=== PATIENT | female | born 1950 | race Caucasian/White ===

== ENCOUNTER 2018-10-29 11:22 | Inpatient (IN) | payer MEDICARE, OTHER ==
[2018-10-29] MEDS ORDERED: HYDROCODONE/APAP (5/325) TAB PO (12:00)
[2018-10-29] MEDS ORDERED: ONDANSETRON 4 MG INJ IV (12:00)
[2018-10-29] MEDS ORDERED: MAGNESIUM HYDROXIDE 30ML CUP PO (12:00)
[2018-10-29] MEDS ORDERED: NACL 0.9% 3 ML SYG IV (12:00)
[2018-10-29] MEDS ORDERED: DOCUSATE SODIUM 100 MG CAP PO (12:00)
[2018-10-29] MEDS: HYDROCODONE/APAP (5/325) TAB PO ×2 (12:06→21:19)
[2018-10-29] MEDS: HYDROmorphONE 0.5 MG/0.5 ML SYG IV (14:43)
[2018-10-29] MEDS: GABAPENTIN 400 MG CAP PO (21:13)
[2018-10-29] MEDS: ATORVASTATIN 20 MG TAB PO (21:14)
[2018-10-29] MEDS: PHENYTOIN 100 MG CAP PO (21:14)
[2018-10-29] MEDS: CALCIUM/VITAMIN D (500/200) TAB PO (22:09)
[2018-10-29] MEDS: ACETAMINOPHEN 325 MG TAB PO (22:29)
[2018-10-30] MEDS: HYDROCODONE/APAP (5/325) TAB PO (00:57)
[2018-10-30] MEDS: TIZANIDINE 4 MG TAB PO ×2 (01:18→21:06)
[2018-10-30] MEDS: HYDROmorphONE 0.5 MG/0.5 ML SYG IV ×3 (05:54→20:08)
[2018-10-30] MEDS ORDERED: PHENYTOIN 100 MG CAP PO (07:20)
[2018-10-30] MEDS: POTASSIUM CHLORIDE (SR) 20 MEQ TAB PO (09:00)
[2018-10-30] MEDS: GABAPENTIN 400 MG CAP PO ×3 (09:00→20:09)
[2018-10-30] MEDS: LISINOPRIL 10 MG TAB PO (09:00)
[2018-10-30] MEDS: MULTIVITAMINS THERAPEUTIC TAB PO (09:00)
[2018-10-30] MEDS: TIOTROPIUM 18 MCG CAPSULE INHA DEV INH (09:00)
[2018-10-30] MEDS: NICOTINE (21 MG/24 HR) PATCH TRANSDERM (09:00)
[2018-10-30] MEDS: CALCIUM/VITAMIN D (500/200) TAB PO ×2 (09:00→20:06)
[2018-10-30] MEDS: PHENYTOIN 100 MG CAP PO ×2 (09:00→20:07)
[2018-10-30] MEDS ORDERED: LIDOCAINE 1% (MDV) 20 ML INJ (12:30)
[2018-10-30] MEDS ORDERED: MIDAZOLAM 1 MG/ML 2 ML INJ (12:30)
[2018-10-30] MEDS ORDERED: FENTAnyl 50 MCG/ML VIAL (12:30)
[2018-10-30] MEDS ORDERED: HEPARIN 1000 UNITS/NS (A-LINE) 1,000 ML (12:30)
[2018-10-30] MEDS ORDERED: IOHEXOL 350MG/ML 50 ML BTL ×2 (13:10→13:33)
[2018-10-30] MEDS ORDERED: IODIXANOL LOCM 100 ML BTL (13:10)
[2018-10-30] MEDS ORDERED: IODIXANOL LOCM 50 ML BTL (13:16)
[2018-10-30] MEDS: ATORVASTATIN 20 MG TAB PO (20:05)
[2018-10-31] MEDS: HYDROmorphONE 0.5 MG/0.5 ML SYG IV ×3 (02:04→13:32)
[2018-10-31] MEDS: HYDROCODONE/APAP (10/325) TAB PO ×4 (05:07→22:42)
[2018-10-31] MEDS: TIOTROPIUM 18 MCG CAPSULE INHA DEV INH (09:00)
[2018-10-31] MEDS: GABAPENTIN 400 MG CAP PO ×3 (09:00→20:39)
[2018-10-31] MEDS: FENTAnyl 50 MCG/ML VIAL (10:21)
[2018-10-31] MEDS: MIDAZOLAM 1 MG/ML 2 ML INJ (10:22)
[2018-10-31] MEDS: LIDOCAINE 1% (MDV) 20 ML INJ (10:40)
[2018-10-31] MEDS: POTASSIUM CHLORIDE (SR) 20 MEQ TAB PO (13:33)
[2018-10-31] MEDS: LISINOPRIL 10 MG TAB PO (13:33)
[2018-10-31] MEDS: CALCIUM/VITAMIN D (500/200) TAB PO ×2 (13:35→20:40)
[2018-10-31] MEDS: MULTIVITAMINS THERAPEUTIC TAB PO (13:35)
[2018-10-31] MEDS: PHENYTOIN 100 MG CAP PO ×2 (13:38→20:39)
[2018-10-31] MEDS: NICOTINE (21 MG/24 HR) PATCH TRANSDERM (14:43)
[2018-10-31] MEDS: HYDROmorphONE 1 MG/ML SYG IV ×2 (16:51→20:51)
[2018-10-31] MEDS: ATORVASTATIN 20 MG TAB PO (20:40)
[2018-11-01] MEDS: HYDROmorphONE 1 MG/ML SYG IV ×6 (03:22→23:55)
[2018-11-01] MEDS: HYDROCODONE/APAP (10/325) TAB PO ×5 (04:31→21:39)
[2018-11-01] MEDS: GABAPENTIN 400 MG CAP PO ×3 (08:59→20:36)
[2018-11-01] MEDS: TIOTROPIUM 18 MCG CAPSULE INHA DEV INH (08:59)
[2018-11-01] MEDS: PHENYTOIN 100 MG CAP PO ×2 (08:59→20:36)
[2018-11-01] MEDS: POTASSIUM CHLORIDE (SR) 20 MEQ TAB PO (09:00)
[2018-11-01] MEDS: LISINOPRIL 10 MG TAB PO (09:00)
[2018-11-01] MEDS: CALCIUM/VITAMIN D (500/200) TAB PO ×2 (09:00→20:36)
[2018-11-01] MEDS: MULTIVITAMINS THERAPEUTIC TAB PO (09:00)
[2018-11-01] MEDS: ATORVASTATIN 20 MG TAB PO (20:36)
[2018-11-02] MEDS: HYDROmorphONE 1 MG/ML SYG IV ×5 (04:47→22:16)
[2018-11-02] MEDS: MULTIVITAMINS THERAPEUTIC TAB PO (09:21)
[2018-11-02] MEDS: GABAPENTIN 400 MG CAP PO ×3 (09:21→20:44)
[2018-11-02] MEDS: POTASSIUM CHLORIDE (SR) 20 MEQ TAB PO (09:22)
[2018-11-02] MEDS: LISINOPRIL 10 MG TAB PO (09:22)
[2018-11-02] MEDS: PHENYTOIN 100 MG CAP PO ×2 (09:23→20:43)
[2018-11-02] MEDS: TIOTROPIUM 18 MCG CAPSULE INHA DEV INH (09:23)
[2018-11-02] MEDS: CALCIUM/VITAMIN D (500/200) TAB PO ×2 (09:23→20:44)
[2018-11-02] MEDS: NICOTINE (21 MG/24 HR) PATCH TRANSDERM (09:30)
[2018-11-02] MEDS: HYDROCODONE/APAP (10/325) TAB PO ×2 (14:35→19:15)
[2018-11-02] MEDS: ATORVASTATIN 20 MG TAB PO (20:43)
[2018-11-03] MEDS: DEXTROSE 5%-0.45% NACL 1,000 ML IV ×2 (00:03→16:40)
[2018-11-03] MEDS: HYDROmorphONE 1 MG/ML SYG IV ×7 (02:18→22:18)
[2018-11-03] MEDS: HYDROCODONE/APAP (10/325) TAB PO ×2 (04:52→16:02)
[2018-11-03] MEDS: NICOTINE (21 MG/24 HR) PATCH TRANSDERM (08:31)
[2018-11-03] MEDS: TIOTROPIUM 18 MCG CAPSULE INHA DEV INH (08:31)
[2018-11-03] MEDS: PHENYTOIN 100 MG CAP PO ×2 (08:32→20:37)
[2018-11-03] MEDS: LISINOPRIL 10 MG TAB PO (08:32)
[2018-11-03] MEDS: CALCIUM/VITAMIN D (500/200) TAB PO ×2 (08:34→20:36)
[2018-11-03] MEDS: MULTIVITAMINS THERAPEUTIC TAB PO (08:34)
[2018-11-03] MEDS: POTASSIUM CHLORIDE (SR) 20 MEQ TAB PO (08:34)
[2018-11-03] MEDS: GABAPENTIN 400 MG CAP PO ×3 (08:34→20:36)
[2018-11-03] MEDS ORDERED: EPHEDrine 25 MG/5 ML SYG (13:00)
[2018-11-03] MEDS ORDERED: LIDOCAINE 2% (SDV) 5 ML INJ (13:00)
[2018-11-03] MEDS ORDERED: PHENYLephrine (100 MCG/ML) 10ML SYG (13:00)
[2018-11-03] MEDS: PROPOFOL 40 ML (13:02)
[2018-11-03] MEDS: MIDAZOLAM 1 MG/ML 2 ML INJ (13:02)
[2018-11-03] MEDS: FENTAnyl 50 MCG/ML VIAL (13:03)
[2018-11-03] MEDS: LIDOCAINE 1% (MPF) 5 ML VIAL (13:45)
[2018-11-03] MEDS ORDERED: FENTAnyl 50 MCG/ML VIAL IV ×2 (15:00)
[2018-11-03] MEDS ORDERED: LEVALBUTEROL (NEB) 0.63 MG/3 ML AMP HHN (15:00)
[2018-11-03] MEDS ORDERED: KETOROLAC 15 MG INJ IV (15:00)
[2018-11-03] MEDS ORDERED: LABETALOL HCL 20MG INJ IV (15:00)
[2018-11-03] MEDS ORDERED: hydrALAzine 20 MG INJ IV (15:00)
[2018-11-03] MEDS ORDERED: morphine 2 MG INJ IV ×2 (15:00)
[2018-11-03] MEDS ORDERED: HYDROmorphONE 1 MG/5 ML IV SYRINGE IV ×3 (15:00)
[2018-11-03] MEDS ORDERED: DIPHENHYDRAMINE 50 MG INJ IV (15:00)
[2018-11-03] MEDS ORDERED: ALBUTEROL 0.083% (NEB) 2.5 MG/3 ML AMP HHN (15:00)
[2018-11-03] MEDS ORDERED: EPHEDrine 25 MG/5 ML SYG IV (15:00)
[2018-11-03] MEDS ORDERED: ONDANSETRON 4 MG INJ IV (15:00)
[2018-11-03] MEDS ORDERED: OXYCODONE/ACETAMINOPHEN (5/325) TAB PO ×2 (15:00)
[2018-11-03] MEDS: PHENYTOIN 300 MG in SOD CHLORIDE 0.9% 50 ML IV (16:00)
[2018-11-03] MEDS: HYDROmorphONE 2 MG/ML SYG IV (16:27)
[2018-11-03] MEDS: ATORVASTATIN 20 MG TAB PO (20:36)
[2018-11-04] MEDS: HYDROmorphONE 1 MG/ML SYG IV ×6 (04:11→21:16)
[2018-11-04] MEDS: GABAPENTIN 400 MG CAP PO ×3 (09:04→21:16)
[2018-11-04] MEDS: CALCIUM/VITAMIN D (500/200) TAB PO ×2 (09:05→21:16)
[2018-11-04] MEDS: MULTIVITAMINS THERAPEUTIC TAB PO (09:05)
[2018-11-04] MEDS: POTASSIUM CHLORIDE (SR) 20 MEQ TAB PO (09:06)
[2018-11-04] MEDS: PHENYTOIN 100 MG CAP PO ×2 (09:06→21:17)
[2018-11-04] MEDS: TIOTROPIUM 18 MCG CAPSULE INHA DEV INH (09:07)
[2018-11-04] MEDS: NICOTINE (21 MG/24 HR) PATCH TRANSDERM (09:07)
[2018-11-04] MEDS: LISINOPRIL 10 MG TAB PO (09:08)
[2018-11-04] MEDS: HYDROCODONE/APAP (10/325) TAB PO ×2 (09:09→13:16)
[2018-11-04] MEDS: DEXTROSE 5%-0.45% NACL 1,000 ML IV (09:20)
[2018-11-04] MEDS: ATORVASTATIN 20 MG TAB PO (21:16)
[2018-11-05] MEDS: DEXTROSE 5%-0.45% NACL 1,000 ML IV (02:00)
[2018-11-05] MEDS: HYDROCODONE/APAP (10/325) TAB PO ×3 (05:14→10:49)
[2018-11-05] MEDS: HYDROmorphONE 1 MG/ML SYG IV ×3 (05:20→13:07)
[2018-11-05] MEDS: GABAPENTIN 400 MG CAP PO ×3 (08:17→20:38)
[2018-11-05] MEDS: MULTIVITAMINS THERAPEUTIC TAB PO (08:17)
[2018-11-05] MEDS: TIOTROPIUM 18 MCG CAPSULE INHA DEV INH (08:17)
[2018-11-05] MEDS: CALCIUM/VITAMIN D (500/200) TAB PO ×2 (08:19→20:38)
[2018-11-05] MEDS: LISINOPRIL 10 MG TAB PO (08:19)
[2018-11-05] MEDS: POTASSIUM CHLORIDE (SR) 20 MEQ TAB PO (08:19)
[2018-11-05] MEDS: NICOTINE (21 MG/24 HR) PATCH TRANSDERM (08:21)
[2018-11-05] MEDS ORDERED: PHENYTOIN 50 MG CHEW PO (09:00)
[2018-11-05] MEDS ORDERED: PHENYTOIN 100 MG CAP PO ×3 (09:00→21:00)
[2018-11-05] MEDS: PHENYTOIN (25 MG/ML PO SYG) PO ×2 (10:54→22:55)
[2018-11-05] MEDS: SOD CHLORIDE 0.9% IV (10:54)
[2018-11-05] MEDS: PHENYTOIN IV (10:54)
[2018-11-05] MEDS: ASPIRIN 81 MG TAB PO (17:47)
[2018-11-05] MEDS: SOD CHLORIDE 0.9% 1,000 ML IV ×2 (17:47→18:12)
[2018-11-05] MEDS ORDERED: PSEUDOEPHEDRINE 30 MG TAB PO (19:00)
[2018-11-05] MEDS: ATORVASTATIN 20 MG TAB PO (20:38)
[2018-11-05] MEDS: oxyCODONE (CR) 10 MG TAB [oxyCONTIN] PO (20:38)
[2018-11-05] MEDS: IBUPROFEN 400 MG TAB PO (20:38)
[2018-11-06] MEDS: HYDROCODONE/APAP (10/325) TAB PO ×3 (00:52→10:31)
[2018-11-06] MEDS: SOD CHLORIDE 0.9% 1,000 ML IV ×3 (01:42→22:52)
[2018-11-06] MEDS: oxyCODONE (CR) 10 MG TAB [oxyCONTIN] PO (08:10)
[2018-11-06] MEDS: TIOTROPIUM 18 MCG CAPSULE INHA DEV INH (09:00)
[2018-11-06] MEDS: IBUPROFEN 400 MG TAB PO ×3 (09:06→20:38)
[2018-11-06] MEDS: CALCIUM/VITAMIN D (500/200) TAB PO ×2 (09:06→20:38)
[2018-11-06] MEDS: LISINOPRIL 10 MG TAB PO (09:07)
[2018-11-06] MEDS: POTASSIUM CHLORIDE (SR) 20 MEQ TAB PO (09:07)
[2018-11-06] MEDS: GABAPENTIN 400 MG CAP PO ×3 (09:07→20:38)
[2018-11-06] MEDS: MULTIVITAMINS THERAPEUTIC TAB PO (09:07)
[2018-11-06] MEDS: PHENYTOIN (25 MG/ML PO SYG) PO ×2 (09:07→20:47)
[2018-11-06] MEDS: NICOTINE (21 MG/24 HR) PATCH TRANSDERM (09:08)
[2018-11-06] MEDS: HYDROmorphONE 0.5 MG/0.5 ML SYG IV ×2 (18:12→22:25)
[2018-11-06] MEDS: HYDROmorphONE 2 MG TAB PO (20:38)
[2018-11-06] MEDS: ATORVASTATIN 20 MG TAB PO (20:39)
[2018-11-07] MEDS: TIZANIDINE 4 MG TAB PO ×2 (01:42→16:37)
[2018-11-07] MEDS: ACETAMINOPHEN 325 MG TAB PO (01:42)
[2018-11-07] MEDS: HYDROmorphONE 0.5 MG/0.5 ML SYG IV ×6 (02:27→22:31)
[2018-11-07] MEDS: HYDROmorphONE 2 MG TAB PO ×2 (02:28→08:22)
[2018-11-07] MEDS: SOD CHLORIDE 0.9% 1,000 ML IV ×2 (07:56→17:36)
[2018-11-07] MEDS: MULTIVITAMINS THERAPEUTIC TAB PO (09:28)
[2018-11-07] MEDS: IBUPROFEN 400 MG TAB PO ×4 (09:28→22:27)
[2018-11-07] MEDS: POTASSIUM CHLORIDE (SR) 20 MEQ TAB PO (09:28)
[2018-11-07] MEDS: CALCIUM/VITAMIN D (500/200) TAB PO ×3 (09:28→22:28)
[2018-11-07] MEDS: GABAPENTIN 400 MG CAP PO ×4 (09:28→22:28)
[2018-11-07] MEDS: NICOTINE (21 MG/24 HR) PATCH TRANSDERM (09:29)
[2018-11-07] MEDS: LISINOPRIL 10 MG TAB PO (09:29)
[2018-11-07] MEDS: TIOTROPIUM 18 MCG CAPSULE INHA DEV INH (14:53)
[2018-11-07] MEDS: ATORVASTATIN 20 MG TAB PO ×2 (21:00→22:28)
[2018-11-08] MEDS: SOD CHLORIDE 0.9% 1,000 ML IV (05:00)
[2018-11-08] MEDS: HYDROmorphONE 0.5 MG/0.5 ML SYG IV ×6 (06:27→22:00)
[2018-11-08] MEDS: POTASSIUM CHLORIDE (SR) 20 MEQ TAB PO (08:18)
[2018-11-08] MEDS: GABAPENTIN 400 MG CAP PO ×3 (08:19→21:47)
[2018-11-08] MEDS: LISINOPRIL 10 MG TAB PO (08:19)
[2018-11-08] MEDS: MULTIVITAMINS THERAPEUTIC TAB PO (08:19)
[2018-11-08] MEDS: CALCIUM/VITAMIN D (500/200) TAB PO ×2 (08:19→21:47)
[2018-11-08] MEDS: IBUPROFEN 400 MG TAB PO ×3 (08:19→21:48)
[2018-11-08] MEDS: NICOTINE (21 MG/24 HR) PATCH TRANSDERM (08:20)
[2018-11-08] MEDS: TIOTROPIUM 18 MCG CAPSULE INHA DEV INH (09:39)
[2018-11-08] MEDS: HYDROmorphONE 2 MG TAB PO (16:04)
[2018-11-08] MEDS: ATORVASTATIN 20 MG TAB PO (21:47)
[2018-11-08] MEDS: TIZANIDINE 4 MG TAB PO (23:22)
[2018-11-09] MEDS: HYDROmorphONE 0.5 MG/0.5 ML SYG IV ×5 (02:56→21:32)
[2018-11-09] MEDS: ZOLPIDEM 5 MG TAB PO (03:24)
[2018-11-09] MEDS: CALCIUM/VITAMIN D (500/200) TAB PO ×2 (08:28→21:32)
[2018-11-09] MEDS: POTASSIUM CHLORIDE (SR) 20 MEQ TAB PO (08:28)
[2018-11-09] MEDS: MULTIVITAMINS THERAPEUTIC TAB PO (08:28)
[2018-11-09] MEDS: IBUPROFEN 400 MG TAB PO ×3 (08:29→21:32)
[2018-11-09] MEDS: TIOTROPIUM 18 MCG CAPSULE INHA DEV INH (08:29)
[2018-11-09] MEDS: LISINOPRIL 10 MG TAB PO (08:29)
[2018-11-09] MEDS: GABAPENTIN 400 MG CAP PO ×3 (08:29→21:32)
[2018-11-09] MEDS: NICOTINE (21 MG/24 HR) PATCH TRANSDERM (08:30)
[2018-11-09] MEDS: HYDROmorphONE 2 MG TAB PO ×2 (11:11→15:52)
[2018-11-09] MEDS: PHENYTOIN 100 MG CAP PO (21:31)
[2018-11-09] MEDS: ATORVASTATIN 20 MG TAB PO (21:32)
[2018-11-10] MEDS: HYDROmorphONE 0.5 MG/0.5 ML SYG IV ×6 (01:59→19:26)
[2018-11-10] MEDS: HYDROmorphONE 2 MG TAB PO ×5 (04:00→21:13)
[2018-11-10] MEDS: NICOTINE (21 MG/24 HR) PATCH TRANSDERM (09:03)
[2018-11-10] MEDS: TIOTROPIUM 18 MCG CAPSULE INHA DEV INH (09:03)
[2018-11-10] MEDS: GABAPENTIN 400 MG CAP PO ×3 (09:05→21:08)
[2018-11-10] MEDS: PHENYTOIN 100 MG CAP PO ×2 (09:05→21:07)
[2018-11-10] MEDS: POTASSIUM CHLORIDE (SR) 20 MEQ TAB PO (09:05)
[2018-11-10] MEDS: MULTIVITAMINS THERAPEUTIC TAB PO (09:05)
[2018-11-10] MEDS: IBUPROFEN 400 MG TAB PO ×3 (09:06→21:08)
[2018-11-10] MEDS: LISINOPRIL 10 MG TAB PO (09:06)
[2018-11-10] MEDS: CALCIUM/VITAMIN D (500/200) TAB PO ×2 (09:06→21:07)
[2018-11-10] MEDS: ATORVASTATIN 20 MG TAB PO (21:08)
[2018-11-11] MEDS: HYDROmorphONE 0.5 MG/0.5 ML SYG IV ×5 (01:29→16:53)
[2018-11-11] MEDS: HYDROmorphONE 2 MG TAB PO ×3 (06:19→14:45)
[2018-11-11] MEDS: NICOTINE (21 MG/24 HR) PATCH TRANSDERM (09:07)
[2018-11-11] MEDS: TIOTROPIUM 18 MCG CAPSULE INHA DEV INH (09:08)
[2018-11-11] MEDS: LISINOPRIL 10 MG TAB PO (09:08)
[2018-11-11] MEDS: PHENYTOIN 100 MG CAP PO (09:09)
[2018-11-11] MEDS: POTASSIUM CHLORIDE (SR) 20 MEQ TAB PO (09:10)
[2018-11-11] MEDS: MULTIVITAMINS THERAPEUTIC TAB PO (09:10)
[2018-11-11] MEDS: CALCIUM/VITAMIN D (500/200) TAB PO (09:10)
[2018-11-11] MEDS: IBUPROFEN 400 MG TAB PO ×2 (09:10→13:06)
[2018-11-11] MEDS: GABAPENTIN 400 MG CAP PO ×2 (09:10→13:06)
[2018-11-11] MEDS ORDERED: ALPRAZOLAM 0.5 MG TAB PO (10:00)
== END 2018-11-11 17:39 | DRG 167 ==
LOC: MS1 10-30 20:35
PROC: 06H03DZ Insertion of Intraluminal Device into Inferior Vena Cava, Percutaneous Approach (ICD-10-PCS; principal; 2018-10-30)
PROC: 0W9930Z Drainage of Right Pleural Cavity with Drainage Device, Percutaneous Approach (ICD-10-PCS; 2018-10-31)
PROC: 0BBF3ZX Excision of Right Lower Lung Lobe, Percutaneous Approach, Diagnostic (ICD-10-PCS; 2018-11-03)
DX: C34.31 Malignant neoplasm of lower lobe, right bronchus or lung (principal); I82.492 Acute embolism and thrombosis of other specified deep vein of left lower extremity; G40.209 Localization-related (focal) (partial) symptomatic epilepsy and epileptic syndromes with complex partial seizures, not intractable, without status epilepticus; J95.811 Postprocedural pneumothorax; I69.354 Hemiplegia and hemiparesis following cerebral infarction affecting left non-dominant side; I69.398 Other sequelae of cerebral infarction; Z87.891 Personal history of nicotine dependence; G89.4 Chronic pain syndrome; J44.9 Chronic obstructive pulmonary disease, unspecified; M19.012 Primary osteoarthritis, left shoulder; M19.011 Primary osteoarthritis, right shoulder; F41.9 Anxiety disorder, unspecified; M17.11 Unilateral primary osteoarthritis, right knee; D63.8 Anemia in other chronic diseases classified elsewhere; F32.9 Major depressive disorder, single episode, unspecified
CPT/HCPCS: 36589; 70450; 71045; 75989; 77012; 78582; 80048; 80053; 80061; 80185; 81001; 82728; 82962; 83036; 83540; 83735; 84100; 85025; 85610; 85730; 87081; 88307; 88313; 88341; 88342; 88360; 93005; 93306; 93880; 94010; 94729